=== PATIENT | female | born 1950 | race Hispanic/Latino ===

== ENCOUNTER 2021-11-25 20:16 | Emergency (ER) | payer MEDICARE ==
[~2021-11-25] VITALS: Ht 157.5 cm; Wt 87.5 kg
[2021-11-25 20:20] VITALS: BP 147/70
[2021-11-25] MEDS ORDERED: L.E.T. GEL 3ML SYG TP ONE ×2 (21:00→22:12)
[2021-11-25] MEDS ORDERED: LIDOCAINE HCL MPF 1% 5ML VIAL ONE (22:45)
[2021-11-25] MEDS ORDERED: BACI30OI6 TP (22:59)
[2021-11-25] MEDS ORDERED: BACITRACIN 28.4 GM OINT TP ONE (23:00)
[2021-11-25] MEDS ORDERED: TETANUS/DIPHTHERIA TOXOID [ADULT] 0.5 ML VIAL IM ONE ×2 (23:00→23:03)
[2021-11-25] MEDS ORDERED: NEOMY SULF/BACITRA/POLYMYXIN B 1 EACH PACKET TP ONE (23:10)
== END 2021-11-25 23:28 | disposition home or self-care (01) ==
LOC: EDH 20:16
DX: S61.211A Laceration without foreign body of left index finger without damage to nail, initial encounter (principal); Z88.0 Allergy status to penicillin; Z88.5 Allergy status to narcotic agent; Z88.6 Allergy status to analgesic agent; Z98.890 Other specified postprocedural states; W26.0XXA Contact with knife, initial encounter; Y93.89 Activity, other specified; Y92.89 Other specified places as the place of occurrence of the external cause; Y99.8 Other external cause status
CPT/HCPCS: 12001; 90471; 90714; 99283; J3490